=== PATIENT | male | born 1960 | race Caucasian/White ===

== ENCOUNTER → 2023-02-18 09:02 | Outpatient (BNVA) | payer OTHER, SELFPAY | PROVIDERS: PCP Physician Assistant Medical; Visit Provider Nurse Practitioner Family ==

== ENCOUNTER 2023-04-08 08:30 | Outpatient (AMB) | payer OTHER, SELFPAY ==
[2023-04-08 08:39] VITALS: BP 158/98; PULSE 75; RESP 14; O2SAT 98; BMI 40.9
--- NOTE | 2023-04-08 08:39 | A.OFFVIS_ITS ---
Intake Vital Signs 04/08/23 08:39 Height 5 ft 7 in Weight 261 lb BMI 40.9 BP 158/98 H Blood Pressure Location Rt brachial Position Sitting Respiration 14 Pulse 75 Pulse Source Pulse Oximeter Pulse Oximetry (%) 98 Oxygen Delivery Method Room Air Intake Visit Reasons: right theraputic shoulder inj Allergies clindamycin Allergy (Unknown, Verified 02/18/23 09:11) Gastrointestinal Upset HPI right theraputic shoulder inj HPI Details 62-year-old male is presenting today for a right therapeutic shoulder injection. The patient was referred by MOISES Rush. He reports constant localized tenderness in lateral and anterior aspects of right shoulder and pain radiating into his right upper arm. Pain affects his daily functioning, activities, sleep, mood, and social interactions. Patient presents for scheduled procedure. Denies any recent cough, cold, infection, fever or other significant changes in medical history since last office visit. [facility] Medical History BPH (benign prostatic hyperplasia) Diabetes mellitus type 2 in obese Gout Hypertension Hyperuricemia Major depressive disorder Morbid obesity Surgical History (Updated 02/18/23 @ 09:18 by Valeria Castro) H/O prostate biopsy History of carpal tunnel release Review of Systems Const All systems reviewed & are unremarkable except as noted in HPI and below Physical Exam Vital Signs: Last Vital Signs Pulse 75 04/08/23 08:39 Resp 14 04/08/23 08:39 BP 158/98 H 04/08/23 08:39 Pulse Ox 98 04/08/23 08:39 Oxygen Delivery Method Room Air 04/08/23 08:39 BMI result Body Mass Index 40.9 General: Appears afebrile. Alert and oriented. Mood and affect appropriate. Follows and participates in conversation appropriately. Respiratory effort is unlabored. Able to transition from sit to stand unassisted. Ambulates with bilaterally normal heel strike and toe off. Office Procedures Joint Injection/Drain Joint Injection/Drain Details: Right therapeutic shoulder injection - US guided Primary Site: right shoulder Prep: site was prepped using aseptic technique and site was prepped using sterile technique Injected: 20 mg of, Kenalog, with 3 mL of, 0.25% bupivacaine and in the subcromial space Approach Used: posterolateral Procedure: The patient tolerated the procedure well Coding Details: An ultrasound image of the injection was saved to the patient's permanent record. 35086 - Acromioclavicular with ultrasound guidance Procedure code (CPT) selection complete Results Reviewed Results Reviewed: No imaging is available for review. Assessment & Plan Assessment & Plan (1) Chronic right shoulder pain: Code(s): M25.511 - Pain in right shoulder; G89.29 - Other chronic pain (2) Right shoulder tendinitis: Code(s): M77.8 - Other enthesopathies, not elsewhere classified Plan Patient is status post right therapeutic shoulder injection under US guided. Patient tolerated procedure well and was discharged home in stable condition with discharge instructions. All questions were answered. We will follow-up in two weeks via telephone or in clinic to assess response to therapy. A follow-up appointment was made during today's visit. Scribed for Dr. Piña by Georgi Burton, medical information specialist, on 04/08/2023. I, Dr. Piña, have personally reviewed and agree with the information entered by the scribe. Coding Level of Care Code Procedure Only Diagnoses Chronic right shoulder pain M25.511; G89.29 Right shoulder tendinitis M77.8 CPT Codes Coding - Joint 6: 34286 - Acromioclavicular with ultrasound guidance ([id number])
== END 2023-04-08 08:54 | disposition home or self-care (01) ==
PROVIDERS: PCP Physician Assistant Medical; Visit Provider Internal Medicine
DX: M25.511 Pain in right shoulder (principal); G89.29 Other chronic pain; M77.8 Other enthesopathies, not elsewhere classified
CPT/HCPCS: 20606

== ENCOUNTER → 2023-04-08 08:30 | Outpatient (BNVA) | payer OTHER, SELFPAY | PROVIDERS: PCP Physician Assistant Medical; Visit Provider Internal Medicine | DX: M25.511 Pain in right shoulder (principal); G89.29 Other chronic pain; M77.8 Other enthesopathies, not elsewhere classified | CPT/HCPCS: 20606; J3301 ==